=== PATIENT | male | born 1965 | race Hispanic/Latino ===

== ENCOUNTER 2017-09-04 19:32 | Emergency (ER) | payer BC ==
[2017-09-04 20:57] LABS: Absolute Lymphocytes (CBC) 1.4 K/uL (0.7-4.9); Absolute Monocytes 0.5 K/uL (0.1-1.3); Absolute Neutrophil 5.9 K/uL (1.8-8.0); Basophils % 0.3 % (0-1.3); Eosinophils % 0.2 % (0-4.4); Lymphocytes % 17.8 % (15.3-44.8); MCH 29.7 pg (27.0-35.0); MCV 89.4 fL (80-100); MPV 7.8 fL (7.6-11.3); Monocytes % 5.8 % (3.3-12.3); RBC Red Blood Cell Count 4.81 M/uL (4.33-5.43)
[2017-09-04 21:08] LABS: Potassium 3.9 mmol/L (3.5-5.1)
--- NOTE | 2017-09-04 22:22 | RAD REPORT ---
EXAM DESCRIPTION: CT - Head C Spine Cap Sakina Aguirre - 09/04/2017 10:01 pm CLINICAL HISTORY: Fall from ladder, head, face, neck, chest and abdomen injury. Pain COMPARISON: None. TECHNIQUE: Axial [address] head images were obtained. Axial [address] cervical spine images were obtaine d with sagittal and coronal reconstruction images reviewed. During dynamic enhancement of 100mL non-i onic contrast, axial 5 mm images of the chest, abdomen and pelvis were obtained. All CT scans are performed using dose optimization technique as appropriate and may include automated exposure control or mA/KV adjustment according to patient size. FINDINGS: No intracranial hemorrhage, mass or edema. No midline shift or abnormal fluid collection. Small posterior scalp hematoma is present. Underlying bone is intact. Mastoid air cells and paranasal sinuses are clear. No skull fracture. CT cervical spine imaging shows normal height. Normal alignment of the vertebrae. No disc space narro wing. No paraspinal mass or hematoma seen. Central canal detail is inherently limited. Concerns for t raumatic disc herniation or traumatic cord injury can be further addressed with MR imaging. CT chest shows no pneumothorax, pulmonary contusion or pleural fluid collection. No mediastinal hemat bel and the aorta and pulmonary arteries are unremarkable. No chest will mass or abnormal axillary fi nding. No displaced rib fracture or other significant bony finding. CT abdomen and pelvis show no injury to solid abdominal viscera. Gallbladder and biliary tree are unr emarkable. No bowel injury or significant finding. No free air, free fluid or abnormal stranding. No urinary bladder abnormality. No acute thoracic or lumbar finding. Midthoracic endplate spurring changes are present. Significant d isc and endplate degenerative change present at L4-5. L5 is partially sacralized. IMPRESSION: Small posterior scalp hematoma. No hemorrhage, edema or acute intracranial finding. No significant CT Cervical Spine finding. No significant CT Chest finding. No significant CT Abdomen and Pelvis finding. Nonacute findings detailed in the body of the report.
--- NOTE | 2017-09-04 22:24 | RAD REPORT ---
EXAM DESCRIPTION: CT - Facial Bones W/ Mpr - 09/04/2017 9:48 pm CLINICAL HISTORY: Fall from ladder, facial trauma COMPARISON: None. TECHNIQUE: Axial 2 millimeter thick images of the facial bones were obtained with sagittal and coron al reconstruction imaging. All CT scans are performed using dose optimization technique as appropriate and may include automated exposure control or mA/KV adjustment according to patient size. FINDINGS: No mandible fracture. Condyles are normally positioned. No facial fracture confirmed. Mast oid air cells are clear. Patchy mucosal thickening in the ethmoid air cells. No air-fluid level seen. Globes and orbital contents are normal. No suspicious soft tissue finding. No foreign body. IMPRESSION: No facial bone fracture. No significant finding identifiable.
--- NOTE | 2017-09-04 22:43 | ER ---
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 Care prior to arrival: None. Mechanism of Injury: Fall. Mechanism of Injury: Fall from ladder approximately 12 feet. Trauma event details: Injury occurred in the [facility], Injury occurred: warehouse Injury occurred: September 04, 2017 Injury occurred at: 18:30. 19:51 Acuity: JIAN 2 bs1 19:51 Method Of Arrival: Wheelchair bs1 19:51 Transition of care: patient was not received from another setting of care. Onset of bs1 symptoms was September 03, 2017 at 18:30. Risk Assessment: Do you want to hurt yourself or someone else? Patient reports no desire to harm self or others. Initial Sepsis Screen: Does the patient meet any 2 criteria? No. Patient's initial sepsis screen is negative. Does the patient have a suspected source of infection? No. Patient's initial sepsis screen is negative. Trauma Activation: Alert Physician: ED Physician; Name: aleena; Notified At: 19:34; Arrived At: Physician: General Surgeon; Name: ; Notified At: 19:34; Arrived At: Physician: Radiology; Name: selena; Notified At: 19:34; Arrived At: Physician: Respiratory; Name: ; Notified At: 19:34; Arrived At: Physician: Lab; Name: ; Notified At: 19:34; Arrived At: Historical: - Allergies: 23:18 No Known Allergies; bs1 - Home Meds: 23:18 None [Active]; bs1 - PMHx: 23:18 TBI; bs1 - PSHx: 23:18 Unable to obtain; bs1 - Immunization history:: Adult Immunizations up to date. - Immunization history: Last tetanus immunization: - up to date. - Social history:: Smoking status: Patient/guardian denies using tobacco. - Ebola Screening: : Patient negative for fever greater than or equal to 101.5 degrees Fahrenheit, and additional compatible Ebola Virus Disease symptoms Patient denies exposure to infectious person. Screenin:55 Abuse screen: Denies threats or abuse. Denies injuries from another. Nutritional bs1 screening: No deficits noted. Tuberculosis screening: No symptoms or risk factors identified. Fall Risk None identified. Primary Survey: 19:51 A: Airway: patent. Breathing/Chest: Respiratory pattern: regular, Respiratory effort: bs1 spontaneous, unlabored, Breath sounds: clear, bilaterally. Chest inspection: symmetrical rise and fall of the chest. Circulation: Cardiac rhythm: sinus rhythm Heart tones present. Pulses: palpable right radial artery, right brachial artery, right femoral artery, right posterior tibial artery, right dorsalis pedis artery, left radial artery, left brachial artery, left femoral artery, left posterior tibial artery, left dorsalis pedis artery, left carotid pulse and right carotid pulse. Skin color: pink, Skin temperature: warm. Disability Alert. 20:51 Reassessment Airway Airway Patent Breathing/Chest Respiratory pattern Regular bs1 Respiratory effort Spontaneous Unlabored Breath sounds Clear Chest inspection Symmetrical Circulation Heart rhythm Sinus rhythm Heart tones Present Pulses Palpable Color [place] Temperature Warm. 21:51 Reassessment Airway Airway Patent Breathing/Chest Respiratory pattern Regular bs1 Respiratory effort Spontaneous Unlabored Breath sounds Clear Chest inspection Symmetrical Circulation Heart rhythm Sinus rhythm Heart tones Present Pulses Palpable Color [place] Temperature Warm. 22:51 Reassessment Airway Airway Patent Breathing/Chest Respiratory pattern Regular bs1 Respiratory effort Spontaneous Unlabored Breath sounds Clear Chest inspection Symmetrical Circulation Heart rhythm Sinus rhythm Heart tones Present Pulses Palpable Color [place] Temperature Warm. Secondary Survey: 19:51 HEENT: Head Other superficial skin tear noted to occipital scalp, no bleeding noted bs1 Face No injury/deformity Eyes: No injury or deformity noted. to bilateral eyes. Ears: clear bilaterally. patient reports clear drainage to left ear, no drainage noted at this time.. Nose: clear to bilateral nares. Throat: No injury or deformity noted. is clear with gag reflex present. Gastrointestinal: No deficits noted. Abdomen is soft, non-distended, Bowel sounds present in all quadrants. Palpation No deficit noted. : No signs and/or symptoms were reported regarding the genitourinary system. Musculoskeletal: Circulation, motion, and sensation intact. Capillary refill < 3 seconds. patient reports dizziness, feeling unbalanced, fluid in left ear, jaw locked, and nausea. Assessment: 19:51 General: Appears in no apparent distress. uncomfortable, obese, well groomed, Behavior bs1 is calm, cooperative, appropriate for age. Pain: Complains of pain in right shoulder, head Pain does not radiate. Neuro: Level of Consciousness is awake, alert, obeys commands, Oriented to person, place, time, situation, Appropriate for age Pad Making Machine Operator are equal bilaterally Speech is normal, Facial symmetry appears normal, Pupils are PERRLA, Intact Reports dizziness, headache weakness patient states "I feel unbalanced.". Denies blurred vision difficulty swallowing, patient reports "Locked Jaw." Patient is able to verbally communicate with nurse in complete sentences with no distress.. EENT: No signs and/or symptoms were reported regarding the EENT system. Cardiovascular: Denies chest pain, shortness of breath, Heart tones S1 S2 present Capillary refill < 3 seconds Patient's skin is warm and dry. Cardiovascular: Reports nausea. Respiratory: Airway is patent Trachea midline Respiratory effort is even, unlabored, Respiratory pattern is regular, symmetrical, Breath sounds are clear bilaterally. GI: No signs and/or symptoms were reported involving the gastrointestinal system. : No signs and/or symptoms were reported regarding the genitourinary system. Derm: Skin has skin tears on noted to occipital scalp, no drainage noted. Musculoskeletal: Circulation, motion, and sensation intact. Capillary refill < 3 seconds, Reports pain in right shoulder. 21:45 Reassessment: Patient appears in no apparent distress at this time. Patient and/or bs1 family updated on plan of care and expected duration. Pain level reassessed. Patient is alert, oriented x 3, equal unlabored respirations, skin warm/dry/pink. 22:45 Reassessment: Patient appears in no apparent distress at this time. No changes from bs1 previously documented assessment. Patient and/or family updated on plan of care and expected duration. Pain level reassessed. Patient is alert, oriented x 3, equal unlabored respirations, skin warm/dry/pink. Patient still c/o nausea. Even respirations noted. No distress noted. Patient alert and oriented. 23:00 Reassessment: Cleansed patients occipital scalp with NS and applied triple antibiotic bs1 ointment on skin tear. Tolerated well. Vital Signs: 19:51 BP 126 / 69 LA Supine (auto/lg); Pulse 84; Resp 18; Temp 98(O); Pulse Ox 96% on R/A; bs1 Pain 6/10; 20:51 BP 128 / 49; Pulse 88; Resp 17 S; Pulse Ox 97% on R/A; bs1 21:51 BP 127 / 62; Pulse 88; Resp 17; Temp 98(O); Pulse Ox 96% on R/A; Pain 6/10; bs1 22:45 BP 139 / 66; Pulse 71; Resp 16; Temp 97.9(O); Pulse Ox 98% on R/A; Weight 127.01 kg bs1 (R); Pain 4/10; 23:10 BP 135 / 68; Pulse 73; Resp 18; Temp 98(O); Pulse Ox 98% on R/A; Pain 0/10; bs1 Ganesh Coma Score: 19:51 Eye Response: spontaneous(4). Verbal Response: oriented(5). Motor Response: obeys bs1 commands(6). Total: 15. Trauma Score (Adult): 19:51 Eye Response: spontaneous(1); Verbal Response: oriented(1); Motor Response: obeys bs1 commands(2); Systolic BP: > 89 mm Hg(4); Respiratory Rate: 10 to 29 per min(4); [place] Score: 15; Trauma Score: 12 ED Course: 19:37 Patient arrived in ED. ds1 19:51 Susanna Fung, PRASANTH is Primary Nurse. bs1 19:55 Stephen Cormier PA is PHCP. jr8 19:55 Dre Grey MD is Attending Physician. jr8 20:00 Patient has correct armband on for positive identification. Bed in low position. Call bs1 light in reach. Side rails up X 1. teletypesetter monitor on. Pulse ox on. NIBP on. 20:00 Warm blanket given. bs1 20:00 Thermoregulation: warm blanket given to patient. bs1 20:20 Inserted saline lock: 18 gauge in right antecubital area, using aseptic technique. bs1 Blood collected. Via ultrasound by KYLE Cormier. Attempted twice by KRISTIN Stuton and 1 time by Nurse PRASANTH Mullins 18 G left upper arm. 20:20 Patient maintains SpO2 saturation greater than 95% on room air. bs1 20:52 Radiology exam delayed due to lab results not completed at this time. (BUN/Creatinine). kw1 21:03 Triage completed. bs1 21:48 CT Facial Bones W/O Con In Process Unspecified. EDMS 22:00 CT completed. Patient moved to CT via stretcher. Patient moved back from CT. kw1 22:01 CT Traumagram (Head C Spine CAP W Con) In Process Unspecified. EDMS 22:19 PHCP role handed off by Stephen Cormier PA cp 22:19 Tong Godoy PA is PHCP. cp 22:56 Arm band placed on left wrist. bs1 22:58 No provider procedures requiring assistance completed. bs1 23:17 IV discontinued, bleeding controlled, No redness/swelling at site. Pressure dressing bs1 applied. Administered Medications: 22:52 Drug: Zofran 4 mg Route: PO; bs1 23:50 Follow up: Response: No adverse reaction bs1 Intake: 19:51 PO: 50ml; IV: 10ml; Total: 60ml. bs1 Output: 19:51 Urine: 1ml (Voided); Total: 1ml. bs1 Outcome: 22:43 Discharge ordered by MD. cp 23:16 Discharged to home via wheelchair, with significant other. bs1 23:16 Condition: stable 23:16 Discharge instructions given to patient, significant other, Instructed on discharge instructions, follow up and referral plans. Demonstrated understanding of instructions, follow-up care. 23:19 Patient's length of stay in the Emergency Department was greater than [address] scanPatient's length of stay extended due to 23:48 Patient left the ED. bs1 Signatures: Dispatcher [facility] Sanders, Dianelys ds1 Stephen Cormier PA PA jrTong Hamilton PA PA cp Wilhelm, Kimberly kw1 Susanna Fung, PRASANTH RN bs1 Corrections: (The following items were deleted from the chart) 23:51 22:45 BP 139 / 66; Pulse 71bpm; Resp 16bpm; Pulse Ox 98% RA; Temp 97.9F Oral; Pain bs1 4/10; bs1
--- NOTE | 2017-09-04 22:43 | EDPHYS ---
Physician Documentation [facility] Name: Shubham Chang Age: 52 yrs Sex: Male : 1965 Arrival Date: 09/04/2017 Time: 19:37 Bed 18 Private MD: ED Physician Dre Grey HPI: 09/04 20:26 This 52 yrs old Male presents to ER via Unassigned with complaints of Fall jr8 Injury. 20:26 Details of fall: The patient fell from a height, from a ladder, approximately 10 feet. jr8 Onset: The symptoms/episode began/occurred acutely, today. Associated injuries: The patient sustained injury to the head. Severity of symptoms: At their worst the symptoms were moderate, in the emergency department the symptoms are unchanged. The patient has not experienced similar symptoms in the past. The patient has not recently seen a physician. Denies LOC. Stated that ladder sipped causing him to land on back of head . Historical: - Allergies: 23:18 No Known Allergies; bs1 - Home Meds: 23:18 None [Active]; bs1 - PMHx: 23:18 TBI; bs1 - PSHx: 23:18 Unable to obtain; bs1 - Immunization history:: Adult Immunizations up to date. - Immunization history: Last tetanus immunization: - up to date. - Social history:: Smoking status: Patient/guardian denies using tobacco. - Ebola Screening: : Patient negative for fever greater than or equal to 101.5 degrees Fahrenheit, and additional compatible Ebola Virus Disease symptoms Patient denies exposure to infectious person. ROS: 20:26 Eyes: Negative for injury, pain, redness, and discharge, ENT: Negative for injury, jr8 pain, and discharge, Cardiovascular: Negative for chest pain, palpitations, and edema, Respiratory: Negative for shortness of breath, cough, wheezing, and pleuritic chest pain, Back: Negative for injury and pain, MS/Extremity: Negative for injury and deformity, Skin: Negative for injury, rash, and discoloration. 20:26 Neck: Positive for pain with movement, pain at rest, stiffness, Negative for bony tenderness. 20:26 Abdomen/GI: Positive for abdominal pain, Negative for nausea, vomiting, and diarrhea. 20:26 Neuro: Positive for dizziness, headache, Negative for altered mental status, loss of consciousness, numbness, seizure activity, syncope, near syncope, tingling, tinnitus, tremor, visual changes, weakness. Exam: 20:26 Eyes: Pupils equal round and reactive to light, extra-ocular motions intact. Lids and jr8 lashes normal. Conjunctiva and sclera are non-icteric and not injected. Cornea within normal limits. Periorbital areas with no swelling, redness, or edema. ENT: Nares patent. No nasal discharge, no septal abnormalities noted. Tympanic membranes are normal and external auditory canals are clear. Oropharynx with no redness, swelling, or masses, exudates, or evidence of obstruction, uvula midline. Mucous membranes moist. Neck: Trachea midline, no thyromegaly or masses palpated, and no cervical lymphadenopathy. Supple, full range of motion without nuchal rigidity, or vertebral point tenderness. No Meningismus. Chest/axilla: Normal chest wall appearance and motion. Nontender with no deformity. No lesions are appreciated. Cardiovascular: Regular rate and rhythm with a normal S1 and S2. No gallops, murmurs, or rubs. Normal PMI, no JVD. No pulse deficits. Respiratory: Lungs have equal breath sounds bilaterally, clear to auscultation and percussion. No rales, rhonchi or wheezes noted. No increased work of breathing, no retractions or nasal flaring. Abdomen/GI: Soft, mild tenderness to upper abdomen, with normal bowel sounds. No distension or tympany. No guarding or rebound. No ecchymosis Back: No spinal tenderness. No costovertebral tenderness. Full range of motion. Skin: Warm, dry with normal turgor. Normal color with no rashes, no lesions, and no evidence of cellulitis. MS/ Extremity: Pulses equal, no cyanosis. Neurovascular intact. Full, normal range of motion. Neuro: Awake and alert, GCS 15, oriented to person, place, time, and situation. Cranial nerves II-XII grossly intact. Motor strength 5/5 in all extremities. Sensory grossly intact. Cerebellar exam normal. Normal gait. 20:26 Head/face: Noted is hematoma, that is mild, of the back of head. Vital Signs: 19:51 BP 126 / 69 LA Supine (auto/lg); Pulse 84; Resp 18; Temp 98(O); Pulse Ox 96% on R/A; bs1 Pain 6/10; 20:51 BP 128 / 49; Pulse 88; Resp 17 S; Pulse Ox 97% on R/A; bs1 21:51 BP 127 / 62; Pulse 88; Resp 17; Temp 98(O); Pulse Ox 96% on R/A; Pain 6/10; bs1 22:45 BP 139 / 66; Pulse 71; Resp 16; Temp 97.9(O); Pulse Ox 98% on R/A; Weight 127.01 kg bs1 (R); Pain 4/10; 23:10 BP 135 / 68; Pulse 73; Resp 18; Temp 98(O); Pulse Ox 98% on R/A; Pain 0/10; bs1 [place] Coma Score: 19:51 Eye Response: spontaneous(4). Verbal Response: oriented(5). Motor Response: obeys bs1 commands(6). Total: 15. Trauma Score (Adult): 19:51 Eye Response: spontaneous(1); Verbal Response: oriented(1); Motor Response: obeys bs1 commands(2); Systolic BP: > 89 mm Hg(4); Respiratory Rate: 10 to 29 per min(4); Ganesh Score: 15; Trauma Score: 12 Procedures: 20:28 Peripheral line: by aseptic technique a peripheral line was placed in the right jr8 antecubital vein, US guided . MDM: 19:55 Patient medically screened. [facility] 20:00 Differential diagnosis: closed head injury, contusion, fracture, laceration, multiple cp trauma. 22:15 Transition of care: After a detail discussion of the patient's case, care is [facility] transferred to Tong WRIGHT. 22:42 Data reviewed: vital signs, nurses notes, lab test result(s), radiologic studies, CT cp scan. 22:42 Counseling: I had a detailed discussion with the patient and/or guardian regarding: the cp historical points, exam findings, and any diagnostic results supporting the discharge/admit diagnosis, lab results, radiology results, to return to the emergency department if symptoms worsen or persist or if there are any questions or concerns that arise at home. Special discussion: Based on the patient's history, exam and DX evaluation, there is no indication for emergent intervention or inpatient TX. It is understood by the patient/guardian that if the SXs persist or worsen they need to return immediately for re-evaluation. 09/04 20:23 Order name: Basic Metabolic Panel [facility] 09/04 20:23 Order name: CBC with Diff [facility] 09/04 20:23 Order name: Creatinine for Radiology [facility] 09/04 20:23 Order name: Type And Screen [facility] 09/04 20:23 Order name: Basic Metabolic Panel; Complete Time: 21:23 [facility] 09/04 20:23 Order name: CBC with Automated Diff; Complete Time: 22:02 [facility] 09/04 20:23 Order name: CT Traumagram (Head C Spine CAP W Con); Complete Time: 22:27 [facility] 09/04 22:29 Interpretation: Report reviewed. cp 09/04 20:23 Order name: CT Facial Bones W/O Con; Complete Time: 22:27 [facility] 09/04 22:29 Interpretation: Report reviewed. cp 09/04 20:23 Order name: Type and Screen [facility] 09/04 22:51 Order name: Antibody Screen [facility] 09/04 23:01 Order name: ABO/RH no charge [facility] 09/04 23:29 Order name: Urine Dipstick--Ancillary (enter results) [place] 09/04 20:23 Order name: Labs collected and sent; Complete Time: 20:43 [facility] 09/04 20:23 Order name: Urine Dipstick-Ancillary (obtain specimen); Complete Time: 23:05 [facility] 09/04 22:44 Order name: Vital Signs: need set of vitals with temp; Complete Time: 23:05 cp Administered Medications: 22:52 Drug: Zofran 4 mg Route: PO; bs1 23:50 Follow up: Response: No adverse reaction bs1 Disposition: 09/05 01:10 Co-signature as Attending Physician, Dre Grey MD. rn Disposition: 09/04/17 22:43 Discharged to Home. Impression: Fall on and from ladder, Contusion of other part of head. - Condition is Stable. - Discharge Instructions: Head Injury, Adult, Fall Prevention and Home Safety. - Medication Reconciliation Form, Thank You Letter, Antibiotic Education, Prescription Opioid Use form. - Follow up: Private Physician; When: 2 - 3 days; Reason: Recheck today's complaints. - Problem is new. - Symptoms have improved. Signatures: Dispatcher [facility] Dre Grey MD MD rn Stephen Cormier PA PA jr8 Tong Godoy PA PA cp Salazar, Brittany, RN RN bs1 Corrections: (The following items were deleted from the chart) 09/04 20:59 20:23 Creatinine (Radiology Only) ordered. EDMS EDMS 23:48 22:43 09/04/2017 22:43 Discharged to Home. Impression: Fall on and from ladder; bs1 Contusion of other part of head. Condition is Stable. Forms are Medication Reconciliation Form, Thank You Letter, Antibiotic Education, Prescription Opioid Use. Follow up: Private Physician; When: 2 - 3 days; Reason: Recheck today's complaints. Problem is new. Symptoms have improved. cp
[2017-09-04] MEDS ORDERED: ONDANSETRON 4 MG (ODT) TAB ONE (22:52)
[2017-09-04 23:33] LABS: Urine Blood TRACE (NEG); Urine Glucose NEGATIVE (NEG); Urine Protein NEGATIVE (NEG); Urine Specific Gravity >1.030 (1.005-1.030); Urine pH 5.5 (5.0-7.0)
== END 2017-09-04 23:48 | disposition home or self-care (01) ==
LOC: ER 19:32
PROC: 05HD33Z Insertion of Infusion Device into Right Cephalic Vein, Percutaneous Approach (ICD-10-PCS; principal; 2017-09-04)
PROC: B54MZZA Ultrasonography of Right Upper Extremity Veins, Guidance (ICD-10-PCS; 2017-09-04)
DX: S00.83XA Contusion of other part of head, initial encounter (principal); W11.XXXA Fall on and from ladder, initial encounter; Y93.9 Activity, unspecified; Y92.9 Unspecified place or not applicable
CPT/HCPCS: 70450; 70486; 71260; 72125; 74177; 76377; 80048; 81003; 85025; 86850; 86900; 86901; 99285; Q9967